=== PATIENT | male | born 1950 | race Caucasian/White ===

== ENCOUNTER 2017-01-03 14:30 | Day surgery (SDC) | payer OTHER ==
[~2017-01-03] VITALS: Ht 182.9 cm; Wt 92.0 kg
[~2017-01-03 14:30] MED LIST: ALLO300T46
[2017-01-03 15:03] VITALS: Ht 182.9 cm; Wt 92.0 kg
[2017-01-03] MEDS ORDERED: PROPOFOL 40 ML ONE (15:47)
[2017-01-03] MEDS ORDERED: LIDOCAINE 2% (SDV) 5 ML INJ ONE (15:47)
[2017-01-03 15:59] VITALS: BP 150/84; PULSE 59; RESP 16
--- NOTE | 2017-01-03 16:32 | OPPN ---
Date/Time of Note Date/Time of Note DATE: 01/03/17 TIME: 16:29 Operative Report Preoperative Diagnosis Rectal bleeding History of colon polyps Change in bowel habit Postoperative Diagnosis Four small colon polyps removed Diverticulosis of the colon Internal hemorrhoid Operation/Procedure Performed Colonoscopy and biopsy Provider: ANDREA PAINTING MD Anesthesia Type: MAC Estimated blood loss: none Transfusion Required: no Specimens Colon polyps Grafts/Implants: none Complications: no ANDREA PAINTING MD Jan 03, 2017 16:32
[2017-01-03 16:49] VITALS: BP 127/69; PULSE 54; RESP 14
--- NOTE | 2017-01-03 23:32 | GILP ---
DATE OF PROCEDURE: 01/03/2017 PREOPERATIVE DIAGNOSES: 1. Change in bowel habits. 2. Rectal bleeding. 3. History of colon polyps. POSTOPERATIVE DIAGNOSES: 1. Colonoscopy all the way to the cecum. 2. Four small colon polyps were removed using the biopsy forceps. 3. Diverticulosis of the colon. 4. Internal hemorrhoids. PROCEDURE PERFORMED: Colonoscopy and biopsy. SURGEON: Magdaleno Hardwick MD. INDICATIONS FOR PROCEDURE: Mr. Cruz Pang is a 66-year-old male patient who had change in the bowel habits and rectal bleeding. The patient had a history of colon polyps. The patient was scheduled for a colonoscopy for further evaluation. The procedure and possible complications were well explained to the patient. She understood and consented to the procedure. Under the influence of anesthesia the colonoscope was carefully introduced in the rectum. Under direct vision it was advanced all the way to the cecum. Findings, the patient had 4 small colon polyps and they were removed using the biopsy forceps. He was noted to have diverticulosis of the colon and internal hemorrhoids. He tolerated the procedure very well and there was no complication from the procedure. At the end of procedure he was awake with stable vital signs and he was discharged home in the care of his family. IMPRESSION: 1. Colonoscopy all the way to the cecum. 2. Four small colon polyps were removed using the biopsy forceps. 3. Diverticulosis of the colon. 4. Internal hemorrhoids. PLAN: 1. Anusol HC 2.5 percent cream h.s. 2. Await histopathology report. 3. Next screening colonoscopy in 5 years. Dictated By: MD DILLON Sparks/[email or web address]/he /Document#: [id number] CC: Magdaleno Hardwick MD;*[facility]*
== END 2017-01-03 16:32 | disposition home or self-care (01) ==
LOC: GIL 14:30
PROVIDERS: ATTEND Internal Medicine Gastroenterology
DX: D12.6 Benign neoplasm of colon, unspecified (principal); K57.90 Diverticulosis of intestine, part unspecified, without perforation or abscess without bleeding; K64.8 Other hemorrhoids; I10 Essential (primary) hypertension; E78.5 Hyperlipidemia, unspecified
CPT/HCPCS: 45380; 88305; Z7610

== ENCOUNTER 2017-10-10 10:38 | Day surgery (SDC) | END 2017-10-10 15:10 | disposition home or self-care (01) ==

== ENCOUNTER 2017-10-11 05:07 | Emergency (ER) | END 2017-10-13 13:56 | disposition home or self-care (01) ==